=== PATIENT | female | born 2000 | race African-American/Black ===

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

== ENCOUNTER 2023-09-03 16:11 | Emergency (ER) | payer MEDICAID, SELFPAY ==
[2023-09-03 16:12] VITALS: BP 118/82; PULSE 123; RESP 16; TEMP 36.2; O2SAT 98; BMI 18.8
--- NOTE | 2023-09-03 16:27 | ED.VIS.GI ---
HPI HPI - GI History of Present Illness Chief Complaint: Nausea/Vomiting Narrative Narrative: 33-year-old female with history of HIV presenting with nausea, vomiting. This has been present for about 3 days. She states he has a history of cyclic vomiting. She had 1 episode where it was related to edible THC Gummies but she states that this comes in waves. She states she was at [facility] about a month ago where they told her she might have pancreatitis but then told her she did not. They did an ultrasound of the gallbladder which showed some inflammation but did not if she had gallstones. She states they did not do a CT scan. She states they did not recommend colonoscopy or upper endoscopy and follow-up given she had a negative work-up. Patient's mother states that she has a history of Crohn's disease and she gets flares that looks similar to these. Patient has not followed up as an outpatient to follow-up for Crohn's. She states that she does take medications for HIV and has not missed any doses. Her viral loads been undetectable. She states he has not had a fever. She is making urine. She is having trouble holding down food and fluids. She has not made a bowel movement. No diarrhea. She has no concern for . PFSH PFS Home Medications cephalexin 500 mg capsule 500 mg PO Q12 #14 caps 08/25/19 [Rx Last Taken Unknown] emtricitabine 200 mg-tenofovir alafenamide fumarate 25 mg tablet 1 tab PO DAILY 08/25/19 [History Last Taken Unknown] ondansetron 4 mg disintegrating tablet 4 mg PO Q8H PRN PRN Nausea #10 tabs 08/25/19 [Rx Last Taken Unknown] phenazopyridine 200 mg tablet 200 mg PO BID PRN PRN Pain #10 tabs 08/25/19 [Rx Last Taken Unknown] raltegravir 600 mg tablet 1,200 mg PO DAILY 08/25/19 [History Last Taken Unknown] ondansetron 4 mg disintegrating tablet 4 mg PO Q8H PRN PRN Nausea #20 tabs 09/03/23 [Rx Last Taken Unknown] promethazine 25 mg tablet 25 mg PO TID PRN nausea and vomiting #20 tabs 09/03/23 [Rx Last Taken Unknown] Allergy/AdvReac Type Severity Reaction Status Date / Time No Known Allergies Allergy Verified 09/03/23 16:12 Social History Smoking Status: Never smoker ROS ROS ED Constitutional Constitutional ED: Reports chills; Denies fever(s) or sweats Eyes Eyes: Denies blurry vision or change in vision ENT ENT ED: Denies ear pain or sore throat Cardiovascular Cardiovascular: Denies chest pain, palpitations or racing heartbeat Respiratory/Chest Respiratory/Chest: Denies cough, dyspnea or sputum Gastrointestinal Gastrointestinal: Reports abdominal pain, constipation, nausea and vomiting; Denies diarrhea Genitourinary Genitourinary ED: Denies dysuria, hematuria or urinary frequency Musculoskeletal Musculoskeletal: Denies arthralgias, myalgias or neck pain Integumentary Denies abscess, Abrasions or rash Neurologic Neurologic: Reports headache(s); Denies paresthesias or weakness Psychiatric Psychiatric: Denies anxiety, depression, suicidal ideation or suicidal thoughts Endocrine Endocrinology: Denies polydipsia or polyuria EXAM Physical Exam Const Vital Signs: 09/03/23 16:12 09/03/23 19:14 09/03/23 20:18 Temperature 97.1 F L Temperature Source Temporal Pulse Rate 123 H 90 Respiratory Rate 16 16 16 Blood Pressure 118/82 H 110/66 Blood Pressure Mean 94 80 Pulse Ox 98 100 Oxygen Delivery Method Room Air Room Air Positive well nourished General Appearance ED: NAD; Negative for pallor HEENT Reports moist mucous membranes normocephalic and atraumatic Eyes PERRL Neck no lymphadenopathy Resp normal respiratory effort and clear to auscultation bilaterally Auscultation: Negative for rales, rhonchi or wheezes Cardio regular rate and regular rhythm GI non-distended and no masses Inspection: Negative for abdominal distention Neuro CN's II-XII intact bilaterally and moves all extremities Sensorium / Orientation: alert Psych mental status grossly normal Skin General Skin Exam: Negative for jaundice or pallor MDM MDM MDM Narrative Medical decision making narrative: Patient presenting with cyclic vomiting flare. Differential includes UTI, dehydration, electrolyte abnormalities. Patient abdomen is benign. CBC was obtained to assess white blood cell count, hemoglobin, platelets. CMP to assess liver function, renal function, glucose, electrolytes. Urinalysis to assess for UTI. hCG to assess for . Patient medicated with cyclic vomiting cocktail which did help her significantly. On reevaluation she is not vomiting. She states she feels well enough to go home. I reviewed her lab work with her and is all pretty normal. Fattening was a little elevated but she was given 2 L of IV fluids. I do not believe she needs any imaging at this time. She sent home with Eric and Nicky. I recommended that she follow-up with her regular PCP in [place]. Return precautions discussed. Impression: 1. Cyclic vomiting syndrome 2. Dehydration 3. Abdominal pain Lab Data Labs: Laboratory Results - last 24 hr 09/03/23 09/03/23 16:37 16:49 WBC 9.4 RBC 5.50 H Hgb 15.6 H Hct 47.6 H MCV 86.5 MCH 28.4 MCHC 32.8 RDW Std Deviation 43.6 RDW Coeff of Luz 14.1 Plt Count 396 MPV 10.9 Immature Gran % (Auto) 0.300 Neut % (Auto) 59.6 Lymph % (Auto) 33.8 [place] % (Auto) 5.7 Eos % (Auto) 0.0 Baso % (Auto) 0.6 Absolute Neuts (auto) 5.6 Absolute Lymphs (auto) 3.18 Nucleated RBC % 0 Sodium 139 Potassium 3.7 Chloride 101 Carbon Dioxide 26.0 Anion Gap 12 BUN 22 H Creatinine 1.23 H Estim Creat Clear Calc 54.30 Est GFR (MDRD) Af Amer 70 Est GFR (MDRD) Non-Af 57 L BUN/Creatinine Ratio 17.9 Glucose 105 Calcium 10.1 Total Bilirubin 0.60 AST 19 ALT 26 Alkaline Phosphatase 64 Total Protein 9.3 H Albumin 4.5 Globulin 4.8 H Albumin/Globulin Ratio 0.9 Lipase 23 Serum , Qual NEGATIVE Urine Color Yellow Urine Clarity Cloudy Urine pH 8.0 Ur Specific [place] 1.010 Urine Protein 100 H Urine Glucose (UA) Normal Urine Ketones 50 H Urine Occult Blood 50 H Urine Nitrite Negative Urine Bilirubin Negative Urine Urobilinogen 1 H Ur Leukocyte Esterase 500 H Urine RBC 0-5 SEEN Urine WBC >100 SEEN Ur Squamous Epith Cells 5-10 SEEN Urine Bacteria RARE Urine Mucus 0 SEEN Discharge Plan Triage Chief Complaint: Nausea/Vomiting ED Provider: Ebenezer Benedict Dx/Rx/DC Orders Instructions: ED Cyclic Vomiting Syndrome Prescriptions: New ondansetron 4 mg tablet,disintegrating 4 mg PO Q8H PRN PRN (Reason: Nausea) Qty: 20 0RF promethazine 25 mg tablet 25 mg PO TID PRN (Reason: nausea and vomiting) Qty: 20 0RF No Action phenazopyridine 200 MG tablet 200 mg PO BID PRN PRN (Reason: Pain) Qty: 10 0RF cephalexin 500 MG capsule 500 mg PO Q12 Qty: 14 0RF ondansetron 4 MG tablet 4 mg PO Q8H PRN PRN (Reason: Nausea) Qty: 10 0RF emtricitabine-tenofovir alafen 0 tablet 1 tab PO DAILY raltegravir 600 MG tablet 1,200 mg PO DAILY Patient Comments: take 2 tablets by mouth once daily Primary Care Provider: Care Physician,No Primary Referrals: [facility] Doctor,Out of [Non-Staff] - Disposition Disposition: Home, Self Care
[2023-09-03] MEDS: 0.9% Normal Saline (1000mL) 1,000 ML 1000 ML IV (16:45)
[2023-09-03] MEDS: LORazepam 2 MG/ML Syringe 0.5 MG IV (16:45)
[2023-09-03] MEDS: Ondansetron 4 MG/2 ML Vial IV (16:45)
[2023-09-03 16:50] LABS: Absolute Lymphocyte Count 3.18 X10^3/uL (0.83-4.51); Absolute Neutrophil Count 5.6 X10^3/uL (2.0-7.7); Basophil# 0.06 X10^3/uL; Basophil% 0.6 % (0-1); Hematocrit 47.6 % (37-47); Hemoglobin 15.6 g/dL (12.0-15.0); Lymphocyte # 3.18 X10^3/ul (0.83-4.51); Lymphocyte % 33.8 % (19-41); Mean Corp Hgb Conc 32.8 g/dL (32-36); Mean Corpuscular Hgb 28.4 pg (27.0-32.0); Mean Corpuscular Volume 86.5 fL (81-99); Mean Platelet Vol. 10.9 fl (6.2-12.0); Monocyte# 0.54 X10^3/uL; Monocyte% 5.7 % (0-10); NRBC Flagged by Analyzer 0 % (0-5); Neutrophil # 5.59 X10^3/uL (2.7-7.7); Neutrophil % 59.6 % (47-70); Platelet Count 396 K/mm3 (150-450); RBC Distribution Width CV 14.1 % (11.6-14.6); RBC Distribution Width SD 43.6 fl (35.1-43.9); White Blood Count 9.4 K/mm3 (4.4-11.0)
[2023-09-03 17:06] LABS: Mucous, Urine 0 SEEN /hpf (<or=2+)
[2023-09-03] MEDS: Famotidine 200 MG/20 ML MDV 20 MG in 0.9% Normal Saline (Pres. free 8 ML 300 MG IV (17:06)
[2023-09-03 17:09] LABS: Internal QC Validated? YES +Cl - CLEAR BKGD; Pregnancy, Serum, hCG Quali. NEGATIVE Negative
[2023-09-03 17:17] LABS: Color, Urine Yellow (Yellow); Glucose, Dipstick Normal (Normal); Ketone-Dipstick 50 mg/dl (Negative); Leukocyte Esterase-Dipstick 500 /ul (Negative); Nitrite-Dipstick Negative (Negative); Occult Blood-Urine 50 /ul (Negative); Protein-Dipstick 100 mg/dl (Negative); Urine Bilirubin Dipstick Negative (Negative); Urine Clarity Cloudy (Clear); Urine Urobilinogen 1 mg/dl (Normal)
[2023-09-03 17:20] LABS: ALB/GLOB Ratio 0.9 RATIO (0.9-2.4); AST(SGOT) 19 U/L (15-37); Alanine Aminotransfer ALT/SGPT 26 U/L (13-56); Albumin, Serum 4.5 g/dL (3.2-5.0); Alkaline Phosphatase 64 U/L (45-117); Anion Gap 12 (5-15); BUN 22 mg/dL (7-18); BUN/Creat Ratio 17.9 RATIO (10-20); Calcium,Total 10.1 mg/dL (8.5-10.1); Chloride 101 mmol/L (98-107); Creatinine, Serum 1.23 mg/dL (0.55-1.02); EST Glomerular Filtration Rate 57 mL/min (>60); Est Glom Filt Rate - Afr Amer 70 mL/min (>60); Globulin 4.8 g/dL (2.2-4.2); Glucose 105 mg/dL (74-106); Lipase 23 U/L (13-75); Potassium 3.7 mmol/L (3.5-5.1); Protein, Total 9.3 g/dL (6.4-8.2); Sodium Level 139 mmol/L (136-145)
[2023-09-03 17:43] LABS: White Blood Cells >100 SEEN /hpf (0-5)
[2023-09-03 17:44] LABS: Bacteria RARE /hpf (None Seen); Red Blood Cells-Urine 0-5 SEEN /hpf (0-5); Squamous Epithelial Cells - UA 5-10 SEEN /hpf (5-10)
[2023-09-03 19:14] VITALS: BP 110/66; PULSE 90; RESP 16; O2SAT 100
[2023-09-03 20:18] VITALS: RESP 16
== END 2023-09-03 21:02 | disposition home or self-care (01) ==
PROVIDERS: Emergency Provider Student in an Organized Health Care Education/Training Program; Visit Provider Student in an Organized Health Care Education/Training Program
DX: R11.15 Cyclical vomiting syndrome unrelated to migraine (principal); B20 Human immunodeficiency virus [HIV] disease; K50.90 Crohn's disease, unspecified, without complications; E86.0 Dehydration; Z79.899 Other long term (current) drug therapy
CPT/HCPCS: 80053; 81001; 83690; 84703; 85025; 96365; 96375; 99283; J7030; A4216; J2405; J3490